=== PATIENT | male | born 1995 | race Caucasian/White ===

== ENCOUNTER 2018-04-08 17:11 | Observation (INO) ==
[2018-04-08 18:39] LABS: Basophils % 0.2 % (0.0-0.8); Eosinophils % 0.1 % (0.00-10.9); Hematocrit 33.9 VOL% (42.0-52.0); Hemoglobin 11.4 GM/DL (14.0-18.0); Immature Granulocytes % 0.5 %; Immature Granulocytes Absolute 0.06 #; Lymphocytes # 1.5 10*3/uL (1.4-4.0); Lymphocytes % 12.6 % (21.2-54.2); Mean Corpuscular HGB Conc 33.6 GM/DL (32-36); Mean Corpuscular Hemoglobin 30 PG (27-34); Mean Corpuscular Volume 88.1 FL (87-102); Mean Platelet Volume 8.4 FL (9.6-12.0); Monocytes # 0.6 10*3/uL (0.11-0.8); Monocytes % 4.6 % (1.7-12.7); Neutrophils # 10.1 10*3/uL (1.4-7.4); Platelet Count 195 T/CUMM (130-400); Red Blood Count 3.85 MC/CUMM (3.8-5.5); Red Cell Distribution Width 14.6 % (9.3-17.3); White Blood Count 12.2 T/CUMM (4-12)
[2018-04-08 19:09] LABS: Bilirubin,Total 0.6 MG/DL (0.2-1.0); Calcium 8.9 MG/DL (8.5-10.1); Total Protein 7.4 G/DL (6.4-8.3)
[2018-04-08 19:10] LABS: Osmolality,Calculated 270.8 MOS/KG (273-304); Potassium 3.3 MMOL/L (3.5-5.1)
[2018-04-08 19:25] LABS: Lactic Acid 0.9 MMOL/L (0.4-2.0)
[2018-04-08 19:37] LABS: Apearance,Urine CLEAR (Clear); Bilirubin,Urine Negative (Negative); Blood, Urine Small mg/dL (Negative); Glucose,Urine (UA) Negative (Negative); Ketones,Urine Negative (Negative); Nitrite,Urine Negative (Negative); Protein,Urine Negative; Urine Color Straw (Yellow); Urine Specific Gravity 1.003 (1.001-1.035); Urine Urobilinogen < 2.0 EU/DL (0.2-1.0); WBC,Urine 1 /HPF (0-6)
[2018-04-08 19:45] LABS: Barbiturates Screen,Urine Negative (Negative); Benzodiazepines Screen,Urine Positive (Negative); Cannabinoid Screen,Urine Positive (Negative); Opiate Screen,Urine Positive (Negative); Phencyclidine Screen,Urine Negative (Negative)
[2018-04-09 07:16] LABS: Calcium 8.5 MG/DL (8.5-10.1); Osmolality,Calculated 285.7 MOS/KG (273-304)
[2018-04-09 11:14] VITALS: BP 105/59
== END 2018-04-09 11:27 | disposition home or self-care (01) ==
LOC: N.ED 17:11 → N.EDINP 17:11 → N.3E 21:28
PROVIDERS: ADMIT Surgery; ATTEND Surgery